=== PATIENT | male | born 1950 | race Caucasian/White ===

== ENCOUNTER → 2017-09-18 | Outpatient (CLI) | payer OTHER | END | disposition home or self-care (01) | LOC: CFH 10:10 | PROVIDERS: ATTEND Family Medicine | DX: K76.89 Other specified diseases of liver (principal); B18.2 Chronic viral hepatitis C; Z90.49 Acquired absence of other specified parts of digestive tract | CPT/HCPCS: 76700 ==

== ENCOUNTER → 2017-10-17 | Outpatient (CLI) | payer OTHER ==
[~2017-10-17] MED LIST: OMNIPAQUE 350 MG/ML, 100ML BOTTLE ONE
== END | disposition home or self-care (01) ==
LOC: CFH 08:15
PROVIDERS: ATTEND Family Medicine
DX: K76.89 Other specified diseases of liver (principal); N20.0 Calculus of kidney; N28.1 Cyst of kidney, acquired
CPT/HCPCS: 74170; 82565; Q9967

== ENCOUNTER 2018-11-13 06:51 | Day surgery (SDC) | payer OTHER ==
[~2018-11-13] VITALS: Ht 170.2 cm; Wt 83.4 kg
[~2018-11-13 06:51] MED LIST changes: -OMNIPAQUE 350 MG/ML, 100ML BOTTLE ONE; +TRAM50TA2 PO
[2018-11-13] MEDS ORDERED: GABAPENTIN 300 MG CAPSULE PO ONE (07:30)
[2018-11-13] MEDS ORDERED: ACETAMINOPHEN 500 MG TABLET PO ONE (07:30)
[2018-11-13] MEDS ORDERED: LACTATED RINGERS 1,000 ML IV SCH (07:40)
[2018-11-13] MEDS ORDERED: TRAZ-137 PO (07:42)
[2018-11-13] MEDS ORDERED: PANT40TA5 PO (07:42)
[2018-11-13] MEDS ORDERED: OXYC-302 PO (07:42)
[2018-11-13] MEDS ORDERED: METO50TA82 PO (07:42)
[2018-11-13] MEDS ORDERED: FENTANYL PF 250 MCG/5ML ONE (08:05)
[2018-11-13] MEDS ORDERED: MIDAZOLAM 1 MG/ML, 2ML ONE (08:05)
[2018-11-13] MEDS ORDERED: METOPROLOL 1 MG/ML, 5ML IV PRN (09:00)
[2018-11-13] MEDS ORDERED: HYDROmorphone 2 MG/ML, 1ML IVPush PRN (09:00)
[2018-11-13] MEDS ORDERED: PROMETHAZINE 25 MG/ML, 1ML IV PRN (09:00)
[2018-11-13] MEDS ORDERED: ONDANSETRON 2MG/ML, 2ML IV PRN (09:00)
[2018-11-13] MEDS ORDERED: OXYcodone 5 MG/5 ML ORAL.SOL UDC PO PRN (09:00)
[2018-11-13] MEDS ORDERED: hydrALAzine 20 MG/ML, 1ML IV PRN (09:00)
[2018-11-13] MEDS ORDERED: MEPERIDINE/PF 25MG/0.5ML IVPush PRN (09:00)
[2018-11-13] MEDS ORDERED: FENTANYL PF 100 MCG/2ML IV PRN (09:00)
[2018-11-13] MEDS ORDERED: ALBUTEROL/IPRATROPIUM 2.5MG/0.5MG, 3 ML NPPB PRN (09:00)
[2018-11-13] MEDS ORDERED: MIDAZOLAM 1 MG/ML, 2ML IV PRN (09:00)
[2018-11-13] MEDS ORDERED: DEXAMETHASONE 4 MG/ML, 1ML ONE (09:03)
[2018-11-13] MEDS ORDERED: PROPOFOL 10 MG/ML, 20ML ONE (09:03)
[2018-11-13] MEDS ORDERED: ONDANSETRON 2MG/ML, 2ML ONE (09:03)
[2018-11-13] MEDS ORDERED: CEFAZOLIN 1,000 MG ONE ×2 (09:03)
[2018-11-13] MEDS ORDERED: OMNIPAQUE 350 MG/ML, 50 ML BOTTLE IV ONE (09:06)
[2018-11-13] MEDS ORDERED: KETOROLAC 30 MG/1 ML ONE (09:27)
[2018-11-13] MEDS ORDERED: OMNIPAQUE 350 MG/ML, 50 ML BOTTLE ONE (09:48)
== END 2018-11-13 13:15 | disposition home or self-care (01) ==
LOC: OUT 06:51
PROVIDERS: ATTEND Urology
DX: N20.0 Calculus of kidney (principal); I10 Essential (primary) hypertension; K21.9 Gastro-esophageal reflux disease without esophagitis; Z79.891 Long term (current) use of opiate analgesic; Z79.899 Other long term (current) drug therapy
CPT/HCPCS: 52353; 74420; 93005; C1726; C1758; C1769; J0690; J1100; J1885; J2250; J2405; J2704; J3010; J7120; Q9967